=== PATIENT | male | born 1950 | race African-American/Black ===

== ENCOUNTER 2016-12-14 10:12 | Emergency (ER) | payer BC ==
--- NOTE | ~2016-12-14 | CR63 ---
[facility] A Service of [facility] & [facility] RADIOLOGY TEXT RESULTS PATIENT: AUBREY CABRERA LOCATION: [facility] : 54 UNIT #: [id number] AGE: [address]: Marian Vu SEX: M ORDER DR: [id number] [facility] [address] [facility] [address]. [place], [place] [address] [id number] MR#: [id number] Acc #: [id number] NAME: AUBREY CABRERA. : 1950 SEX: M STUDY DATE/TIME: 12/14/2016 9:25 UNIT: [facility] ROOM: STUDY DESCRIPTION: CR Chest 2 View Attending Physician: Marian Vu Pa-C Ordering Physician: Marian Vu Pa-C Primary Care Physician: Cy Fonseca M.D. MEDICAL IMAGING REPORT This report is preliminary unless electronic signature is present EXAM Chest x-ray 12/14 INDICATIONS Flu-like symptoms with cough and shortness of air and sore throat for 1 week. TECHNIQUE 2 views of the chest were obtained. COMPARISON No comparison. FINDINGS The cardiac and mediastinal contours are normal. There is mild infiltrate or atelectasis at the right base. Lungs otherwise are clear except for granulomatous calcifications. No pneumothorax. IMPRESSION Mild infiltrate or atelectasis in the right lung base. Dictated by... Elia Harris Jr., M.D. THIS IS AN ELECTRONICALLY VERIFIED REPORT Elia Harris Jr., M.D. at 12/14/2016 4:48 PM RLK/yvette TD: 12/14/2016 12:30 JOB #: [id number] MEDICAL IMAGING REPORT Page 1 of 1 COPY
[2016-12-14 09:29] LABS: INFLUENZA A POS (NEG); INFLUENZA B NEG (NEG)
== END 2016-12-14 10:34 | disposition home or self-care (01) ==
LOC: CED 10:12
PROVIDERS: Physician Assistant Medical
DX: J10.08 Influenza due to other identified influenza virus with other specified pneumonia (principal); J18.1 Lobar pneumonia, unspecified organism
CPT/HCPCS: 71020; 87651; 87804; 99282; 99283